=== PATIENT | female | born 1985 | race Caucasian/White ===

== ENCOUNTER 2018-05-16 15:15 | Observation (INO) | payer MEDICAID ==
[2018-05-16 16:07] LABS: ADD MAN DIFF? NO
[2018-05-16] MEDS: ONDANSETRON 4 MG INJ IV (16:11)
[2018-05-16] MEDS: morphine 4 MG/ML VIAL IV ×2 (16:12→19:13)
[2018-05-16 16:13] LABS: WHITE BLOOD COUNT 14.6 10^3/ul (4.8-10.8)
[2018-05-16 16:13] LABS: BASOPHILS % 0.3 % (0.0-2.0); EOSINOPHILS # 0.2 10^3/ul (0.0-0.5); EOSINOPHILS % 1.5 % (0.0-7.0); HEMATOCRIT 32.9 % (37.0-47.0); HEMOGLOBIN 10.9 g/dl (12.0-16.0); LYMPHOCYTES # 1.5 10^3/ul (0.8-2.9); LYMPHOCYTES % 10.3 % (15.0-51.0); MEAN CORPUSCULAR HEMOGLOBIN 29.9 pg (29.0-33.0); MEAN CORPUSCULAR HGB CONC 33.1 g/dl (32.0-37.0); MEAN CORPUSCULAR VOLUME 90.4 fl (82.0-101.0); MEAN PLATELET VOLUME 12.4 fl (7.4-10.4); MONOCYTE # 0.6 10^3/ul (0.3-0.9); MONOCYTES % 3.9 % (0.0-11.0); NEUTROPHIL # 12.2 10^3/ul (1.6-7.5); NEUTROPHILS % 83.4 % (39.0-77.0); PLATELET COUNT 188 10^3/UL (140-415); RED BLOOD COUNT 3.64 10^6/ul (4.20-5.40); RED CELL DISTRIBUTION WIDTH 16.2 % (11.5-14.5)
[2018-05-16 16:33] LABS: INR 0.98; PROTIME 13.1 Sec (11.9-14.9)
[2018-05-16 16:34] LABS: PARTIAL THROMBOPLASTIN TIME 27.1 Sec (25.0-35.0)
[2018-05-16 16:39] LABS: ALBUMIN 3.8 g/dl (3.3-4.9); ALBUMIN/GLOBULIN RATIO 1.11; ALKALINE PHOSPHATASE 64 IU/L (42-121); ANION GAP 12 (8-16); ASPARTATE AMINO TRANSFERASE 23 IU/L (15-46); BILIRUBIN,INDIRECT 0.3 mg/dl (0-1.1); BILIRUBIN,TOTAL 0.3 mg/dl (0.2-1.3); BLOOD UREA NITROGEN 7 mg/dl (7-20); CALCIUM 9.1 mg/dl (8.4-10.2); CARBON DIOXIDE 23 mmol/L (21-31); CHLORIDE 106 mmol/L (97-110); CREATININE 0.43 mg/dl (0.44-1.00); GLUCOSE 106 mg/dl (70-220); POTASSIUM 3.8 mmol/L (3.5-5.1); SODIUM 137 mmol/L (135-144); TOTAL PROTEIN 7.2 g/dl (6.1-8.1)
[2018-05-16 16:40] LABS: ALANINE AMINOTRANSFERASE < 6 IU/L (13-69)
[2018-05-16] MEDS: SOD CHLORIDE 0.9% 1,000 ML IV (16:44)
[2018-05-16] MEDS ORDERED: ACETAMINOPHEN 325 MG TAB PO (19:00)
[2018-05-16] MEDS ORDERED: ONDANSETRON 4 MG INJ IV ×2 (19:00→20:30)
[2018-05-16] MEDS: LACTATED RINGER'S 1,000 ML IV (19:14)
[2018-05-16 19:43] LABS: ADD MAN DIFF? NO
[2018-05-16 19:45] LABS: WHITE BLOOD COUNT 13.4 10^3/ul (4.8-10.8)
[2018-05-16 19:45] LABS: BASOPHILS % 0.1 % (0.0-2.0); EOSINOPHILS % 0.1 % (0.0-7.0); HEMATOCRIT 26.3 % (37.0-47.0); HEMOGLOBIN 8.7 g/dl (12.0-16.0); LYMPHOCYTES # 1.1 10^3/ul (0.8-2.9); LYMPHOCYTES % 8.1 % (15.0-51.0); MEAN CORPUSCULAR HEMOGLOBIN 30.2 pg (29.0-33.0); MEAN CORPUSCULAR HGB CONC 33.1 g/dl (32.0-37.0); MEAN CORPUSCULAR VOLUME 91.3 fl (82.0-101.0); MEAN PLATELET VOLUME 11.9 fl (7.4-10.4); MONOCYTE # 0.5 10^3/ul (0.3-0.9); MONOCYTES % 3.8 % (0.0-11.0); NEUTROPHIL # 11.7 10^3/ul (1.6-7.5); NEUTROPHILS % 87.5 % (39.0-77.0); PLATELET COUNT 176 10^3/UL (140-415); RED BLOOD COUNT 2.88 10^6/ul (4.20-5.40); RED CELL DISTRIBUTION WIDTH 16.2 % (11.5-14.5)
[2018-05-16] MEDS ORDERED: MEPERIDINE 25 MG INJ IV (20:30)
[2018-05-16] MEDS ORDERED: DIPHENHYDRAMINE 50 MG INJ IV (20:30)
[2018-05-16] MEDS ORDERED: FENTAnyl 50 MCG/ML VIAL IV ×2 (20:30)
[2018-05-16] MEDS ORDERED: DOXYCYCLINE 100 MG in SOD CHLORIDE 0.9% 250 ML IVPB (20:30)
[2018-05-16] MEDS ORDERED: METOCLOPRAMIDE 10 MG INJ IV (20:30)
[2018-05-16] MEDS ORDERED: ALBUTEROL 0.083% (NEB) 2.5 MG/3 ML AMP HHN (20:30)
[2018-05-16] MEDS ORDERED: HYDROmorphONE 1 MG/5 ML IV SYRINGE IV ×2 (20:30)
[2018-05-16] MEDS ORDERED: FENTAnyl 50 MCG/ML VIAL (20:34)
[2018-05-16] MEDS ORDERED: SUCCINYLCHOLINE CHLORIDE 100 MG/5 ML SYG IV (20:34)
[2018-05-16] MEDS ORDERED: ROCURONIUM 50 MG INJ (20:34)
[2018-05-16] MEDS ORDERED: PROPOFOL 20 ML (20:34)
[2018-05-16] MEDS ORDERED: LIDOCAINE 100 MG SYRINGE (20:34)
[2018-05-16] MEDS ORDERED: SUGAMMADEX SODIUM 200 MG/2 ML VIAL IV (20:35)
[2018-05-16] MEDS ORDERED: PHENYLephrine (100 MCG/ML) 5ML SYG (20:45)
[2018-05-16] MEDS ORDERED: OXYTOCIN 10 UNIT INJ (21:08)
[2018-05-16] MEDS ORDERED: ALBUMIN HUMAN 5% 250 ML (21:10)
[2018-05-16] MEDS ORDERED: IBUPROFEN 600 MG TAB PO (21:30)
[2018-05-16] MEDS ORDERED: HYDROCODONE/APAP (5/325) TAB PO (21:30)
[2018-05-16] MEDS: HYDROmorphONE 1 MG/5 ML IV SYRINGE IV (21:47)
[2018-05-17] MEDS: SOD CHLORIDE 0.9% 500 ML IV (01:02)
[2018-05-17 02:30] LABS: IMMEDIATE SPIN CROSSMATCH 1 2
[2018-05-17 11:42] LABS: HEMATOCRIT 23.8 % (37.0-47.0); HEMOGLOBIN 7.8 g/dl (12.0-16.0)
[2018-05-17 12:30] LABS: ADD MAN DIFF? NO
[2018-05-17 12:32] LABS: WHITE BLOOD COUNT 7.2 10^3/ul (4.8-10.8)
[2018-05-17 12:32] LABS: BASOPHILS % 0.4 % (0.0-2.0); EOSINOPHILS # 0.1 10^3/ul (0.0-0.5); EOSINOPHILS % 1.4 % (0.0-7.0); HEMATOCRIT 23.9 % (37.0-47.0); HEMOGLOBIN 7.9 g/dl (12.0-16.0); LYMPHOCYTES # 1.2 10^3/ul (0.8-2.9); LYMPHOCYTES % 16.4 % (15.0-51.0); MEAN CORPUSCULAR HEMOGLOBIN 30.2 pg (29.0-33.0); MEAN CORPUSCULAR HGB CONC 33.1 g/dl (32.0-37.0); MEAN CORPUSCULAR VOLUME 91.2 fl (82.0-101.0); MEAN PLATELET VOLUME 12.8 fl (7.4-10.4); MONOCYTE # 0.4 10^3/ul (0.3-0.9); MONOCYTES % 5.4 % (0.0-11.0); NEUTROPHIL # 5.5 10^3/ul (1.6-7.5); PLATELET COUNT 149 10^3/UL (140-415); RED BLOOD COUNT 2.62 10^6/ul (4.20-5.40); RED CELL DISTRIBUTION WIDTH 16.3 % (11.5-14.5)
[2018-05-17] MEDS: MEDROXYPROGESTERONE 150 MG INJ SYG IM (16:12)
== END 2018-05-17 16:15 | disposition home or self-care (01) ==
LOC: MS1 05-17 01:05 → E/R 15:15 → REC 18:50
PROVIDERS: Pediatrics
DX: O03.4 Incomplete spontaneous abortion without complication (principal); D64.9 Anemia, unspecified
CPT/HCPCS: 36415; 36430; 76801; 80053; 85014; 85018; 85025; 85610; 85730; 86850; 86900; 86901; 86920; 88305; 96374; 96375; 99217; 99285-25

== ENCOUNTER 2019-03-01 22:57 | Emergency (ER) | payer MEDICAID | END 2019-03-02 02:22 | disposition home or self-care (01) | LOC: FTE 22:57 | DX: O26.892 Other specified pregnancy related conditions, second trimester (principal); R10.2 Pelvic and perineal pain; Z3A.18 18 weeks gestation of pregnancy | CPT/HCPCS: 76805; 99284-25 ==